=== PATIENT | female | born 1985 | race Caucasian/White ===

== ENCOUNTER 2017-07-30 20:53 | Emergency (ER) | payer SELFPAY ==
--- NOTE | 2017-07-30 21:09 | PDOC ---
Rapid Medical Evaluation Time Seen by Provider: 07/30/17 21:06 Medical Evaluation: Allergies Allergy/AdvReac Type Severity Reaction Status Date / Time No Known Allergies Allergy Verified 01/13/15 13:06 07/30/17 21:06 I have performed a brief in-person evaluation of this patient. The patient presents with a chief complaint of: 7 weeks , suprapubic pain + dysuria x 1 week, urinary frequency Pertinent physical exam findings: well appearing I have ordered the following: UA, Ucx The patient will proceed to the ED for further evaluation. Discharge Disposition - Diagnosis Pain with urination - Referrals - Patient Instructions - Post Discharge Activity
[2017-07-30 21:10] VITALS: BP 141/79; PULSE 60; TEMP 98.3; BMI 25.2
[2017-07-30] MEDS ORDERED: CEPHALEXIN MONOHYDRATE 500 MG CAPSULE (UD) PO ONE (22:11)
[2017-07-30] MEDS ORDERED: CEPHALEXIN MONOHYDRATE 250 MG CAPSULE (FP) ONE (22:12)
--- NOTE | 2017-07-30 22:19 | PDOC ---
History of Present Illness - General History Source: Patient Exam Limitations: No Limitations - History of Present Illness Initial Comments: 07/30/17 22:21 The patient is a 31 year old female 7 weeks , with no significant past medical history , who presents to the emergency department with, pelvic pressure , dysuria and lower back pain for approx. 2 days. Patient reports she has been experiencing a pain while urinating for the past couple days. Patient denies hematuria. 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 Patient denies abdominal cramping or pain. Patient denies recent nausea, vomiting, diarrhea of constipation. Patient denies recent vaginal bleeding or discharge. Patient denies chest pain or shortness of breath. Allergies: NKA <Tod Riley - Last Filed: 07/30/17 22:34> - General History Source: Patient <Tk Foley - Last Filed: 07/30/17 22:42> - General Chief Complaint: Urinary Problem Stated Complaint: 7 WEEK PREG, PAIN Time Seen by Provider: 07/30/17 21:06 Past History <Tod Riley - Last Filed: 07/30/17 22:34> - Past Medical History Asthma: No Cancer: No Cardiac Disorders: No COPD: No Diabetes: No HTN: No Seizures: No Thyroid Disease: No - Suicide/Smoking/Psychosocial Hx Smoking History: Never smoked Have you smoked in the past 12 months: No Information on smoking cessation initiated: No Hx Alcohol Use: No Drug/Substance Use Hx: No Substance Use Type: None Hx Substance Use Treatment: No <Tk Foley - Last Filed: 07/30/17 22:42> - Past Medical History Allergies/Adverse Reactions: Allergies Allergy/AdvReac Type Severity Reaction Status Date / Time No Known Allergies Allergy Verified 07/30/17 21:11 Home Medications: Ambulatory Orders Vit/Iron Fum/Folic AC [ Tablet] 1 each PO DAILY 01/13/15 Acetaminophen [Tylenol .Regular Strength -] 650 mg PO Q3H PRN #0 tablet Ibuprofen [Motrin -] 200 mg PO Q4H PRN #0 tablet 01/14/15 Vitamins (Sjr) - 1 tab PO DAILY tablet 01/14/15 Cephalexin Monohydrate [Keflex -] 500 mg PO BID #20 capsule 01/10/18 Review of Systems - Review of Systems Comments:: 07/30/17 22:22 CONSTITUTIONAL: Absent: fever, no chills, no fatigue EYES: Absent: visual changes ENT: Absent: ear pain, no sore throat CARDIOVASCULAR: Absent: chest pain, no palpitations RESPIRATORY: Absent: cough, no SOB GI: Present: +Pelvic pressure. Absent: abdominal pain, no nausea, no vomiting, no constipation, no diarrhea GENITOURINARY: Present: +Dysuria. Absent: no frequency, no hematuria MUSKULOSKELETAL: Present: +Lower back pain Absent: no arthralgia, no myalgia SKIN: Absent: rash NEURO: Absent: headache <Tod Riley - Last Filed: 07/30/17 22:34> *Physical Exam - Vital Signs Last Vital Signs Temp Pulse Resp BP Pulse Ox 98.3 F 60 16 141/79 98 07/30/17 21:02 07/30/17 21:02 07/30/17 21:02 07/30/17 21:02 07/30/17 21:02 - Physical Exam Comments: 07/30/17 22:24 GENERAL: Well-appearing, well-nourished. No apparent distress. HEENT: Normocephalic, atraumatic. PERRL, EOM intact. CARDIOVASCULAR: Normal S1, S2. Regular rate and rhythm. PULMONARY: Clear to auscultation bilaterally. ABDOMEN: Soft, non-distended, non-tender. EXTREMITIES: Normal ROM in all four extremities. No gross deformities. SKIN: Warm, dry. No rash NEUROLOGICAL: No focal neurological deficits. <Tod Riley - Last Filed: 07/30/17 22:34> - Vital Signs Last Vital Signs Temp Pulse Resp BP Pulse Ox 98.3 F 60 16 141/79 98 07/30/17 21:02 07/30/17 21:02 07/30/17 21:02 07/30/17 21:02 07/30/17 21:02 <Tk Foley - Last Filed: 07/30/17 22:42> ED Treatment Course - Medications Given in the ED: ED Medications Discontinued Medications Generic Name Dose Route Start Last Admin Trade Name Freq PRN Reason Stop Dose Admin Cephalexin HCl 500 mg 07/30/17 22:11 07/30/17 22:13 Keflex - PO 07/30/17 22:12 500 mg ONCE ONE Administration <Tod Riley - Last Filed: 07/30/17 22:34> - Medications Given in the ED: ED Medications Discontinued Medications Generic Name Dose Route Start Last Admin Trade Name Berry PRN Reason Stop Dose Admin Cephalexin HCl 500 mg 07/30/17 22:11 07/30/17 22:13 Keflex - PO 07/30/17 22:12 500 mg ONCE ONE Administration <Tk Foley - Last Filed: 07/30/17 22:42> *DC/Admit/Observation/Transfer - Attestations Scribe Attestion: 07/30/17 22:24 Documentation prepared by Tod Riley, acting as medical doctor md/medical director for Tk Foley MD. <Tod Riley - Last Filed: 07/30/17 22:34> - Discharge Dispostion Admit: No <Tk Foley - Last Filed: 07/30/17 22:42> Diagnosis at time of Disposition: Pain with urination, - Discharge Dispostion Disposition: HOME Condition at time of disposition: Stable - Prescriptions Prescriptions: Cephalexin Monohydrate [Keflex -] 500 mg PO BID #20 capsule - Patient Instructions Printed Discharge Instructions: DI for Urinary Tract Infection (UTI) Additional Instructions: Please take medication as directed. Follow up with your game protector for your scheduled appointment. Return if any problems. Print Language: PERUVIAN
[2017-07-30 22:22] LABS: HCG,QUALITATIVE URINE POSITIVE
[2017-07-30 22:25] LABS: URINE APPEARANCE CLEAR; URINE BILIRUBIN NEGATIVE (NEGATIVE); URINE BLOOD NEGATIVE (NEGATIVE); URINE COLOR STRAW; URINE GLUCOSE (UA) NEGATIVE (NEGATIVE); URINE KETONE NEGATIVE (NEGATIVE); URINE NITRITE NEGATIVE (NEGATIVE); URINE PROTEIN NEGATIVE (NEGATIVE); URINE UROBILINOGEN NEGATIVE mg/dL (0.2-1.0)
[2017-07-30 22:28] LABS: URINE LEUK ESTERASE 1+ (NEGATIVE)
[2017-07-30 22:29] LABS: EPI CELLS RARE /HPF (FEW)
== END 2017-07-30 23:01 | disposition home or self-care (01) ==
LOC: JER 20:53
DX: O23.31 Infections of other parts of urinary tract in pregnancy, first trimester (principal); Z3A.01 Less than 8 weeks gestation of pregnancy
CPT/HCPCS: 81003; 81015; 84703; 87086; 99281-25

== ENCOUNTER 2018-05-14 05:06 | Day surgery (SDC) | payer OTHER ==
[2018-05-08 09:51] VITALS: BMI 25.0
[2018-05-14] MEDS ORDERED: PROPOFOL 20 ML ONE (14:47)
[2018-05-14] MEDS ORDERED: ROCURONIUM BROMIDE 50 MG/5 ML VIAL ONE (14:47)
[2018-05-14] MEDS ORDERED: MIDAZOLAM HCL 2 MG/2 ML SINGLE DOSE VIAL ONE (14:47)
[2018-05-14] MEDS ORDERED: SUCCINYLCHOLINE CHLORIDE 200 MG/10 ML VIAL ONE (14:47)
[2018-05-14] MEDS ORDERED: KETOROLAC TROMETHAMINE 30 MG/1 ML VIAL ONE (14:50)
[2018-05-14] MEDS ORDERED: LIDOCAINE HCL 2% JELLY (5 ML/TUBE) ONE (14:50)
[2018-05-14] MEDS ORDERED: DEXAMETHASONE SOD PHOSPHATE 4 MG/1 ML VIAL ONE (14:50)
[2018-05-14] MEDS ORDERED: ceFAZolin SODIUM 1 GM VIAL ONE (14:50)
--- NOTE | 2018-05-14 15:17 | HP ---
Past Medical History - Primary Care Physician PCP:: Loyd Roman - Admission Chief Complaint: sterlization History of Present Illness: 32 yof requesting sterilization , aware procedure permanent and not reversible, risks of ectopic discussed , ulternatives explained History Source: Patient Limitations to Obtaining History: Language Barrier - Past Surgical History Past Surgical History: Yes: None Hx Myomectomy: No Hx Transabdominal Cerclage: No - Smoking History Smoking history: Never smoked Have you smoked in the past 12 months: No - Alcohol/Substance Use Hx Alcohol Use: No History of Substance Use: reports: None - Social History History of Recent Travel: No Home Medications - Allergies Allergies/Adverse Reactions: Allergies Allergy/AdvReac Type Severity Reaction Status Date / Time No Known Allergies Allergy Verified 05/13/18 17:06 - Home Medications Home Medications: Ambulatory Orders Pnv No.95/Ferrous Fum/Folic AC [ Vitamin Tablet] 1 each PO DAILY Review of Systems - Review of Systems Constitutional: reports: No Symptoms Eyes: reports: No Symptoms HENT: reports: No Symptoms Neck: reports: No Symptoms Cardiovascular: reports: No Symptoms Gastrointestinal: reports: No Symptoms Genitourinary: reports: No Symptoms Breasts: reports: No Symptoms Reported Musculoskeletal: reports: No Symptoms Integumentary: reports: No Symptoms Neurological: reports: No Symptoms Endocrine: reports: No Symptoms Hematology/Lymphatic: reports: No Symptoms Psychiatric: reports: No Symptoms 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 Vital Signs: Vital Signs Temperature 97.9 F 05/14/18 13:46 Pulse Rate 59 L 05/14/18 13:46 Respiratory Rate 18 05/14/18 13:46 Blood Pressure 114/74 05/14/18 13:46 O2 Sat by Pulse Oximetry (%) 97 05/14/18 13:46 Constitutional: Yes: Well Nourished, No Distress, Calm Eyes: Yes: WNL, Conjunctiva Clear, EOM Intact HENT: Yes: WNL, Atraumatic, Normocephalic Neck: Yes: WNL, Supple, Trachea Midline Cardiovascular: Yes: WNL, Regular Rate and Rhythm Respiratory: Yes: WNL, Regular, CTA Bilaterally Gastrointestinal: Yes: WNL ...Rectal Exam: Yes: WNL Renal/: Yes: WNL Vaginal Exam: Yes: Normal Cervix: Yes: Normal Uterus: Yes: Normal Adnexa: Normal: Left, Right Breast(s): Yes: WNL Musculoskeletal: Yes: WNL Extremities: Yes: WNL Edema: No Integumentary: Yes: WNL Neurological: Yes: WNL, Alert, Oriented ...Motor Strength: WNL Psychiatric: Yes: WNL, Alert, Oriented Problem List - Problem (1) Admission for sterilization Code(s): Z30.2 - ENCOUNTER FOR STERILIZATION Assessment/Plan laparoscopic bilateral tubal cauterization
[2018-05-14] MEDS ORDERED: IBUPROFEN 600 MG TABLET (FP) PO PRN (15:19)
[2018-05-14] MEDS ORDERED: oxyCODONE HCL 5 MG TABLET PO PRN ×3 (15:19→16:11)
[2018-05-14] MEDS ORDERED: IBUPROFEN 800 MG/8 ML IJ IVPB PRN (15:19)
[2018-05-14] MEDS ORDERED: ONDANSETRON 4 MG/2 ML VIAL IVPUSH PRN ×2 (15:19→16:11)
[2018-05-14] MEDS ORDERED: ELECTROLYTE-148 SOLN 1,000 ML IV SCH (15:30)
[2018-05-14] MEDS ORDERED: GLYCOPYRROLATE 0.2 MG/1 ML VIAL ONE (15:48)
[2018-05-14] MEDS ORDERED: NEOSTIGMINE METHYLSULFATE 0.5 MG/ML - 10 ML MDV ONE (15:48)
[2018-05-14] MEDS ORDERED: PROMETHAZINE HCL 25 MG/1 ML VIAL IVPUSH PRN (16:11)
[2018-05-14 18:15] VITALS: BP 123/68; PULSE 59; TEMP 98.3
--- NOTE | 2018-05-14 20:23 | OP ---
DATE OF OPERATION: 05/14/2018 PREOPERATIVE DIAGNOSIS: Voluntary sterilization. POSTOPERATIVE DIAGNOSIS: Voluntary sterilization. PROCEDURE: Laparoscopic bilateral tubal cauterization. SURGEON: Loyd Roman MD ANESTHESIA: General. ESTIMATED BLOOD LOSS: Minimal. DESCRIPTION OF OPERATION: The patient was taken to the operating room. Under adequate general anesthesia in dorsal lithotomy position, examination under anesthesia revealed external genitalia to be normal. Vagina was normal. Cervix was clean, no gross lesion. Uterus normal size, anteverted. Adnexa: No masses were palpable. Then, with the weighted speculum in the vagina, anterior lip of the cervix was grasped with single-tooth tenaculum, and Hulka was introduced into the uterine cavity for manipulation. Then, Roberson catheter was inserted. Patient was placed in dorsal lithotomy position for a pelviscopy. A small infraumbilical skin incision was made. A 5-mm trocar was introduced through the umbilical area under direct vision and then pneumoperitoneum established. Under direct vision, a 5-mm trocar was introduced through the suprapubic area, and then, LigaSure bipolar cautery was introduced. The tube was cauterized in 3 portions 2 cm apart. No active bleeding was seen. Both tubes and ovaries were normal. Uterus normal size. Upper abdomen was checked, was normal. Then, abdomen was emptied of all the gas and instruments withdrawn. Suprapubic and infraumbilical skin incisions were closed with interrupted suture of 3-0 Vicryl. Then, the skin was closed with Dermabond glue. Patient tolerated the procedure well, left the OR in good condition. Laura [id number]
== END 2018-05-14 18:30 | disposition home or self-care (01) ==
LOC: JASU-SURG 05:06
PROVIDERS: ATTEND Obstetrics & Gynecology
PROC: 0U574ZZ Destruction of Bilateral Fallopian Tubes, Percutaneous Endoscopic Approach (ICD-10-PCS; principal; 2018-05-14 14:30)
DX: Z30.2 Encounter for sterilization (principal)
CPT/HCPCS: 84703; 94760